=== PATIENT | male | born 1985 | race Caucasian/White ===

== ENCOUNTER 2020-02-16 19:22 | Emergency (ER) | payer OTHER ==
[2020-02-16 19:32] VITALS: BP 141/98; PULSE 94; TEMP 98.6; BMI 27.1
[2020-02-16] MEDS ORDERED: SODIUM CHLORIDE 1,000 ML IV STA (19:57)
[2020-02-16] MEDS ORDERED: ACETAMINOPHEN 1000 MG/100 ML BAG IVPB ONE (19:57)
[2020-02-16] MEDS ORDERED: FAMOTIDINE 20 MG/50 ML IVPB 20 MG/50 ML MG IVPB ONE (20:00)
[2020-02-16] MEDS ORDERED: ACETAMINOPHEN INJECTION 100 ML IVPB ONE (20:05)
[2020-02-16 20:26] LABS: BASO % 0.9 % (0-2.0); EOS % 0.4 % (0-4.5); HEMATOCRIT 45.6 % (35.4-49); HEMOGLOBIN 15.4 GM/dL (11.7-16.9); LYMPH % 20.7 % (8-40); MCH 29.2 pg (25.7-33.7); MCHC 33.8 g/dl (32.0-35.9); MEAN CELL VOLUME 86.4 fl (80-96); MEAN PLT VOLUME 8.8 fl (7.5-11.1); MONO % 7.2 % (3.8-10.2); NEUT % 70.8 % (42.8-82.8); PLATELET COUNT 258 K/MM3 (134-434); RBC 5.28 M/mm3 (4.00-5.60); RDW 13.6 % (11.9-15.9); WHITE BLOOD COUNT 10.4 K/mm3 (4.0-10.0)
[2020-02-16 20:36] LABS: INR 1.12 (0.83-1.09); PROTHROMBIN TIME (PATIENT) 13.7 SEC (9.7-13.0)
[2020-02-16 20:40] LABS: CHLORIDE 102 mmol/L (98-107); SODIUM 138 mmol/L (136-145)
[2020-02-16 20:42] LABS: CALCIUM 9.7 mg/dL (8.5-10.1)
[2020-02-16 20:43] LABS: ALBUMIN 4.6 g/dl (3.4-5.0); ANION GAP 7 MMOL/L (8-16); BLOOD UREA NITROGEN 12.2 mg/dL (7-18); CO2 30 mmol/L (21-32); GLUCOSE,RANDOM 88 mg/dL (74-106)
[2020-02-16 20:46] LABS: CREATININE 1.1 mg/dL (0.55-1.3); SGOT/AST 16 U/L (15-37); SGPT/ALT 48 U/L (13-61)
[2020-02-16 20:48] LABS: BILIRUBIN,TOTAL 0.7 mg/dL (0.2-1)
[2020-02-16 20:49] LABS: ALK PHOS 54 U/L (45-117)
== END 2020-02-16 21:13 | disposition home or self-care (01) ==
LOC: JER 19:22
PROC: 3E033NZ Introduction of Analgesics, Hypnotics, Sedatives into Peripheral Vein, Percutaneous Approach (ICD-10-PCS; principal; 2020-02-16)
PROC: 3E033GC Introduction of Other Therapeutic Substance into Peripheral Vein, Percutaneous Approach (ICD-10-PCS; 2020-02-16)
PROC: 3E0337Z Introduction of Electrolytic and Water Balance Substance into Peripheral Vein, Percutaneous Approach (ICD-10-PCS; 2020-02-16)
DX: R07.9 Chest pain, unspecified (principal); M54.2 Cervicalgia
CPT/HCPCS: 36415; 71046-TC-FY; 80053; 82550; 84484; 85025; 85610; 93005; 93010; 99285-25; C9803; J0131; U0003